=== PATIENT | female | born 1950 | race Caucasian/White ===

== ENCOUNTER 2016-09-09 21:53 | Emergency (ER) | payer SELFPAY ==
[2016-09-09 22:37] VITALS: BP 136/78
[2016-09-10] MEDS ORDERED: FLEXERIL PO ONE (01:02)
--- NOTE | 2016-09-10 01:06 | Emergency Department Report ---
HPI - General Chief Complaint: Extremity Injury, Lower Time Seen by Provider: 09/10/16 00:41 - HPI HPI: Patient is a 66-year-old female who presents to ED complaining of right anterior upper thigh pain status post fall was times one week ago. Patient states she was coming down some stairs when she slipped on the bottom of the stairs and landed on her butt. She denies hitting her head. She states pain has gotten worse with movement. Patient states she tries to walk long distances arrive in the thigh area starts to hurt. Patient also experiences right but lower right back pain. sHe states pain is localized to the right anterior upper leg and buttock pain She denies loss of consciousness, fever, chills, chest pain, shortness of breath , dizziness, headache ED Past Medical Hx - Past Medical History Previous Medical History?: Yes Hx Hypertension: Yes - Surgical History Past Surgical History?: Yes Additional Surgical History: RIGHT KNEE REPLACEMENT / BACK - Social History Smoking Status: Never Smoker Substance Use Type: None - Medications Home Medications: Home Medications Medication Instructions Recorded Confirmed Last Taken Type Acetaminophen/Codeine [Tylenol #3] 1 tab PO Q6H PRN #14 tab 09/10/16 Unknown Rx Cyclobenzaprine [Flexeril] 10 mg PO QHS PRN #20 tablet 09/10/16 Unknown Rx ED Review of Systems ROS: Stated complaint: RT LEG PAIN Other details as noted in HPI Constitutional: denies: chills, fever Eyes: denies: eye pain, eye discharge, vision change ENT: denies: ear pain, throat pain Respiratory: denies: cough, shortness of breath, wheezing Cardiovascular: denies: chest pain, palpitations Endocrine: no symptoms reported Gastrointestinal: denies: abdominal pain, nausea, diarrhea Genitourinary: denies: urgency, dysuria, discharge Musculoskeletal: denies: back pain, joint swelling, arthralgia Skin: denies: rash, lesions Neurological: denies: headache, weakness, paresthesias Psychiatric: denies: anxiety, depression Hematological/Lymphatic: denies: easy bleeding, easy bruising Physical Exam - Physical Exam Vital Signs: Vital Signs 09/09/16 22:32 Temperature 98.0 F Pulse Rate 74 Respiratory 20 Rate Blood Pressure 136/78 O2 Sat by Pulse 98 Oximetry Physical Exam: GENERAL: Alert and oriented x3, no apparent distress, limping Gait with a cane, atraumatic. HEAD: Head is normocephalic and a-traumatic. EYES: Extra ocular muscles are intact. Pupils are equal, round, and reactive to light and accommodation. EARS: symetrical, atraumatic, non tender, gross auditory nml bilaterally. NOSE: Nose symetrical, Nontender,Nares appeared normal. MOUTH:Mouth is well hydrated and without lesions. NECK: Supple. Non edematous, No carotid bruits. No lymphadenopathy or thyromegaly. LUNGS: Symetrical with respiration, No wheezing, no rales or crackles, CTAB. HEART: S1, S2 present, regular rate and rhythm without murmur, no rubs, no gallops. ABDOMEN: No organomegaly was noted,Positive bowel sounds, soft, and non- distended. . Nontender to palpation on all Quadrants, NO CVA tenderness. EXTREMITIES/MUSCULOSKELETAL: No cyanosis, clubbing, rash, lesions or edema. Full ROM bilaterally. UE/LE Pulses 2+ bilaterally. LE and UE 5+ strength bilaterally. Straight leg raise negative mild tenderness to palpation gluteus lizzeth muscle as well as iliac crest muscle. [place] in varus maneuver without pain. No pain to palpation of hip bone. NEUROLOGIC: No focal Deficit, Cranial nerves II through XII are grossly intact. No loss of sensation, PSYCHIATRIC: Mood is congruent with affect, denies suicidal or homicidal ideations. SKIN: Warm and dry, No lesions, No ulceration or induration present. ED Course Vital Signs 09/09/16 22:32 Temperature 98.0 F Pulse Rate 74 Respiratory 20 Rate Blood Pressure 136/78 O2 Sat by Pulse 98 Oximetry ED Medical Decision Making - Medical Decision Making 66-year-old female presents with arthralgias secondary to fall ED course: Patient received 10 mg of Flexeril. Vital signs stable. X-ray of pelvic and right hip ordered. X-ray of the pelvic bones shows no dislocation and no fractures . Normal x-ray Discussed this with the patient. Discussed with patient follow-up with primary care physician. Discussed rest and take medications as prescribed. Critical care attestation.: If time is entered above; I have spent that time in minutes in the direct care of this critically ill patient, excluding procedure time. ED Disposition Clinical Impression: Myalgia Arthralgia Qualifiers: Joint pain location: hip Laterality: right Qualified Code(s): M25.551 - Pain in right hip Fall Qualifiers: Encounter type: initial encounter Qualified Code(s): W19.XXXA - Unspecified fall, initial encounter Disposition: DISCHARGED TO HOME OR SELFCARE Is pt being admited?: No Does the pt Need Aspirin: No Condition: Stable Instructions: Fall Prevention for Older Adults (ED), Fall Prevention (ED), Musculoskeletal Pain (ED), Trigger Point Pain (ED), Arthralgia (ED) Prescriptions: Cyclobenzaprine [Flexeril] 10 mg PO QHS PRN #20 tablet PRN Reason: Muscle Spasm Acetaminophen/Codeine [Tylenol #3] 1 tab PO Q6H PRN #14 tab PRN Reason: Pain Referrals: PRIMARY CAREMD [Primary Care Provider] - 3-5 Days SORAYA RANDOLPH MD [Referring] - 3-5 Days KATHIE SALAS MD [Referring] - 3-5 Days LYNSEY Tang [facility] [Outside] - 3-5 Days [facility] [Outside] - 3-5 Days [facility] [Outside] - 3-5 Days Forms: Accompanied Note Time of Disposition: 02:07
--- NOTE | 2016-09-10 01:35 | XRay Report ---
FINAL REPORT PROCEDURE: XR PELVIS 1-2V TECHNIQUE: Pelvis radiograph, AP view. CPT 46808 HISTORY: fall/pain COMPARISON: No prior studies are available for comparison. FINDINGS: Fracture(s): None . Joint spaces: Normal . Soft tissues: Normal . Foreign bodies: None . Bone mineralization: Normal . IMPRESSION: Normal Examination
== END 2016-09-10 02:20 | disposition home or self-care (01) ==
LOC: ED 21:53
DX: M25.551 Pain in right hip (principal); M79.1 Myalgia; I10 Essential (primary) hypertension; W10.8XXA Fall (on) (from) other stairs and steps, initial encounter; Y93.89 Activity, other specified; Y99.8 Other external cause status; Y92.89 Other specified places as the place of occurrence of the external cause
CPT/HCPCS: 72170; 99283